=== PATIENT | female | born 1965 | race Caucasian/White ===

== ENCOUNTER → 2016-11-04 | Outpatient (CLI) | payer BC ==
--- NOTE | 2016-11-04 11:24 | MM ---
Reason for exam: history of breast cancer, mastectomy. Last mammogram was performed 1 year and 2 months ago. History: Patient has history of other cancer at age 47, has history of breast cancer at age 39, and had first child at age 29. Malignant stereotactic core biopsy of the right breast, July 09, 2004. Malignant ultrasound-guided core biopsy of the right breast, July 09, 2004. 2 reductions of the left breast, 2004. Mastectomy of the right breast, 2004. Benign ultrasound-guided core biopsy of the right breast, January 24, 2000. 3 core biopsies of the right breast. Took tamoxifen for 4 years beginning at age 39. Physical Findings: Nurse did not find any significant physical abnormalities on exam. MG Diagnostic Mammo LT w CAD CC and MLO view(s) were taken of the left breast. Prior study comparison: August 26, 2015, left breast MG 3d diag mammo w/cad LT. June 23, 2014, left breast MG diagnostic mammo LT w CAD. There are scattered fibroglandular densities. There is no discrete abnormality. No significant new findings when compared with previous films. These results were verbally communicated with the patient and result sheet given to the patient on 11/04/16. ASSESSMENT: Negative, BI-RAD 1 RECOMMENDATION: Follow-up diagnostic mammogram of the left breast in 1 year.
== END | disposition home or self-care (01) ==
LOC: RADMAMWWP 09:58
PROVIDERS: ATTEND Obstetrics & Gynecology
DX: Z09 Encounter for follow-up examination after completed treatment for conditions other than malignant neoplasm (principal); Z85.3 Personal history of malignant neoplasm of breast

== ENCOUNTER → 2017-11-09 | Outpatient (CLI) | payer BC ==
--- NOTE | 2017-11-09 12:12 | MM ---
Reason for exam: additional evaluation requested from prior study. Last mammogram was performed 1 year ago. History: Patient has history of other cancer at age 47, has history of breast cancer at age 39, and had first child at age 29. Malignant stereotactic core biopsy of the right breast, July 09, 2004. Malignant ultrasound-guided core biopsy of the right breast, July 09, 2004. 2 reductions of the left breast, 2004. Mastectomy of the right breast, 2004. Benign ultrasound-guided core biopsy of the right breast, January 24, 2000. 3 core biopsies of the right breast. Took tamoxifen for 4 years beginning at age 39. Physical Findings: Nurse did not find any significant physical abnormalities on exam. MG Diagnostic Mammo LT w CAD CC and MLO view(s) were taken of the left breast. Prior study comparison: November 04, 2016, left breast MG diagnostic mammo LT w CAD. August 26, 2015, left breast MG 3d diag mammo w/cad LT. The breast tissue is heterogeneously dense. This may lower the sensitivity of mammography. Finding: There are typically benign linear calcifications in the subareolar position of the left breast. There is no discrete abnormality. These results were verbally communicated with the patient and result sheet given to the patient on 11/09/17. ASSESSMENT: Benign, BI-RAD 2 RECOMMENDATION: Follow-up diagnostic mammogram of the left breast in 1 year.
== END | disposition home or self-care (01) ==
LOC: RADMAMWWP 08:00
PROVIDERS: ATTEND Obstetrics & Gynecology
DX: Z08 Encounter for follow-up examination after completed treatment for malignant neoplasm (principal); Z85.3 Personal history of malignant neoplasm of breast
CPT/HCPCS: 77065

== ENCOUNTER → 2018-12-05 | Outpatient (CLI) | payer BC ==
--- NOTE | 2018-12-05 08:22 | MM ---
Reason for exam: additional evaluation requested from prior study. Last mammogram was performed 1 year and 1 month ago. History: Patient has history of other cancer at age 47, has history of breast cancer at age 39, and had first child at age 29. Malignant stereotactic core biopsy of the right breast, July 09, 2004. Malignant ultrasound-guided core biopsy of the right breast, July 09, 2004. 2 reductions of the left breast, 2004. Mastectomy of the right breast, 2004. Benign ultrasound-guided core biopsy of the right breast, January 24, 2000. 3 core biopsies of the right breast. Took tamoxifen for 4 years beginning at age 39. Physical Findings: Nurse did not find any significant physical abnormalities on exam. MG 3D Diag Mammo W/Cad LT CC, MLO, and ML view(s) were taken of the left breast. Prior study comparison: November 09, 2017, left breast MG diagnostic mammo LT w CAD. November 04, 2016, left breast MG diagnostic mammo LT w CAD. The breast tissue is heterogeneously dense. This may lower the sensitivity of mammography. No suspicious abnormality. These results were verbally communicated with the patient and result sheet given to the patient on 12/05/18. ASSESSMENT: Negative, BI-RAD 1 RECOMMENDATION: Follow-up diagnostic mammogram of the left breast in 1 year.
== END | disposition home or self-care (01) ==
LOC: RADMAMWWP 07:12
PROVIDERS: ATTEND Obstetrics & Gynecology
DX: Z08 Encounter for follow-up examination after completed treatment for malignant neoplasm (principal); Z85.3 Personal history of malignant neoplasm of breast
CPT/HCPCS: 77061; 77065

== ENCOUNTER → 2020-04-10 | Outpatient (CLI) | payer BC ==
--- NOTE | 2020-04-13 10:50 | MM ---
Reason for exam: additional evaluation requested from prior study. Last mammogram was performed 1 year and 4 months ago. History: Patient has history of other cancer at age 47, has history of breast cancer at age 39, and had first child at age 29. Malignant stereotactic core biopsy of the right breast, July 09, 2004. Malignant ultrasound-guided core biopsy of the right breast, July 09, 2004. 2 reductions of the left breast, 2004. Mastectomy of the right breast, 2004. Benign ultrasound-guided core biopsy of the right breast, January 24, 2000. 3 core biopsies of the right breast. Took tamoxifen for 4 years beginning at age 39. Physical Findings: Nurse did not find any significant physical abnormalities on exam. MG 3D Diag Mammo W/Cad LT CC and MLO view(s) were taken of the left breast. Prior study comparison: December 05, 2018, left breast MG 3d diag mammo w/cad LT. November 09, 2017, left breast MG diagnostic mammo LT w CAD. The breast tissue is heterogeneously dense. This may lower the sensitivity of mammography. Finding #1: Architectural distortion in the left breast consistent with known surgical changes. Finding #2: There are typically benign round calcifications in the anterior position of the left breast. There is no discrete abnormality. These results were verbally communicated with the patient and result sheet given to the patient on 04/10/20. ASSESSMENT: Benign, BI-RAD 2 RECOMMENDATION: Follow-up diagnostic mammogram of the left breast in 1 year.
== END | disposition home or self-care (01) ==
LOC: RADMAMWWP 13:26
PROVIDERS: ATTEND Obstetrics & Gynecology
DX: R92.8 Other abnormal and inconclusive findings on diagnostic imaging of breast (principal); Z85.3 Personal history of malignant neoplasm of breast
CPT/HCPCS: 77061; 77065

== ENCOUNTER → 2021-04-12 | Outpatient (CLI) | payer BC ==
--- NOTE | 2021-04-13 13:42 | MM ---
Reason for exam: additional evaluation requested from prior study. Last mammogram was performed 1 year ago. History: Patient has history of other cancer at age 47, has history of breast cancer at age 39, and had first child at age 29. Malignant stereotactic core biopsy of the right breast, July 09, 2004. Malignant ultrasound-guided core biopsy of the right breast, July 09, 2004. 2 reductions of the left breast, 2004. Mastectomy of the right breast, 2004. Benign ultrasound-guided core biopsy of the right breast, January 24, 2000. 3 core biopsies of the right breast. Took tamoxifen for 1 year beginning at age 39. Physical Findings: Nurse did not find any significant physical abnormalities on exam. MG 3D Diag Mammo W/Cad LT CC and MLO view(s) were taken of the left breast. Prior study comparison: April 10, 2020, left breast MG 3d diag mammo w/cad LT. December 05, 2018, left breast MG 3d diag mammo w/cad LT. November 09, 2017, left breast MG diagnostic mammo LT w CAD. There are scattered fibroglandular densities. No significant new findings when compared with previous films. These results were verbally communicated with the patient and result sheet given to the patient on 04/12/21. ASSESSMENT: Benign, BI-RAD 2 RECOMMENDATION: Follow-up diagnostic mammogram of the left breast in 1 year.
== END | disposition home or self-care (01) ==
LOC: RADMAMWWP 14:56
PROVIDERS: ATTEND Internal Medicine Hematology & Oncology
DX: R92.8 Other abnormal and inconclusive findings on diagnostic imaging of breast (principal); Z85.3 Personal history of malignant neoplasm of breast
CPT/HCPCS: 77061; 77065

== ENCOUNTER → 2022-04-14 | Outpatient (CLI) | payer BC ==
--- NOTE | 2022-04-14 15:16 | MM ---
Reason for Exam: Follow-up at short interval from prior study. Last screening mammogram was performed 12 month(s) ago. Patient History: Menarche at age 13. First Full-Term at age 29. Late child-bearing (after 30). Other cancer, age 47. Breast cancer, age 39. Previous chemotherapy at age 39. Tamoxifen, starting at age 39 for 1 year. 2004, Reduction on the Left side. 2004, Mastectomy on the Right side. 2004, Reduction on the Left side. Core Biopsy on the Right side. Core Biopsy on the Right side. Core Biopsy on the Right side. 07/09/2004, Malignant Stereotactic Core Biopsy on the right side. 07/09/2004, Malignant Ultrasound-Guided Core Biopsy on the right side. 01/24/2000, Benign Ultrasound-Guided Core Biopsy on the right side. Prior Study Comparison: 12/05/2018 Left Diagnostic Mammogram, [facility]. 04/10/2020 Left Diagnostic Mammogram, [facility]. 04/12/2021 Left Diagnostic Mammogram, [facility]. Tissue Density: Left: There are scattered fibroglandular densities. Findings: Analyzed By CAD. No significant change from prior exams. Overall Assessment: Negative, BI-RAD 1 Management: Screening Mammogram of the left breast in 1 year. 1. Patient should continue monthly self breast exams. 2. A clinical breast exam by your physician is recommended on an annual basis. 3. This exam should not preclude additional follow-up of suspicious palpable abnormalities. Results were given to the patient verbally at the time of exam. Electronically signed and approved by: Brando Kincaid M.D. Radiologist
== END | disposition home or self-care (01) ==
LOC: RADMAMWWP 14:42
PROVIDERS: ATTEND Internal Medicine Hematology & Oncology
DX: Z08 Encounter for follow-up examination after completed treatment for malignant neoplasm (principal); Z85.3 Personal history of malignant neoplasm of breast
CPT/HCPCS: 77061; 77065

== ENCOUNTER → 2022-07-11 | Outpatient (CLI) | payer BC ==
[2022-07-11 23:21] LABS: Basophils # (A) 0.04 X 10*3/uL (0.00-0.10); Basophils % (A) 0.6 %; Eosinophils # (A) 0.11 X 10*3/uL (0.04-0.35); Eosinophils % (A) 1.8 %; HCT 42.2 % (37.2-46.3); Immature Grans, Automated 0.3 %; Lymphocytes # (A) 1.61 X 10*3/uL (0.90-5.00); Lymphocytes % (A) 25.7 %; MCH 29.3 pg (27.0-32.0); MCHC 33.2 g/dL (32.0-37.0); MCV 88.3 fL (80.0-97.0); Mean Platelet Volume 10.1 fL (9.5-12.2); NRBC Per 100 WBC 0 /100 WBCS (0.0-0.0); Neutrophils # (A) 3.98 X 10*3/uL (1.80-7.70); Neutrophils % (A) 63.6 %; Platelet Count 209 X 10*3/uL (140-440); RBC 4.78 X 10*6/uL (4.10-5.20); RDW 12.5 % (11.5-14.5); WBC 6.26 X 10*3/uL (4.50-10.00)
[2022-07-11 23:38] LABS: ALT 40 U/L (8-44); AST 25 U/L (13-35)
== END | disposition home or self-care (01) ==
LOC: LABWHC1 15:59
PROVIDERS: ATTEND Physician Assistant Medical
DX: B35.1 Tinea unguium (principal); L82.0 Inflamed seborrheic keratosis; L53.8 Other specified erythematous conditions
CPT/HCPCS: 36415; 84450; 84460; 85025

== ENCOUNTER → 2024-04-18 | Outpatient (CLI) | payer BC ==
--- NOTE | 2024-04-18 09:28 | MM ---
Reason for Exam: Hx of breast cancer, mastectomy. Last screening mammogram was performed 12 month(s) ago. Patient History: Menarche at age 13. First Full-Term at age 29. Late child-bearing (after 30). Postmenopausal. Other cancer, age 47. Breast cancer, right, age 39. Previous chemotherapy at age 39. Tamoxifen, starting at age 39 for 1 year. 2004, Reduction on the Left side. 2004, Mastectomy on the Right side. 2004, Reduction on the Left side. Core Biopsy on the Right side. Core Biopsy on the Right side. Core Biopsy on the Right side. 07/09/2004, Malignant Stereotactic Core Biopsy on the right side. 07/09/2004, Malignant Ultrasound-Guided Core Biopsy on the right side. 01/24/2000, Benign Ultrasound-Guided Core Biopsy on the right side. Prior Study Comparison: 04/12/2021 Left Diagnostic Mammogram, [facility]. 04/14/2022 Left MG 3D diag mammo w/cad LT, [facility]. 04/17/2023 Left MG 3D diag mammo w/cad LT, [facility]. Tissue Density: Left: There are scattered areas of fibroglandular density. Findings: Analyzed By CAD. No new suspicious masses, calcifications or distortions. Overall Assessment: Negative, BI-RAD 1 Management: Screening Mammogram of the left breast in 1 year. Results were given to the patient verbally at the time of exam. Patient should continue monthly self-breast exams. A clinical breast exam by your physician is recommended on an annual basis. This exam should not preclude additional follow-up of suspicious palpable abnormalities. Note on Brittni scores and lifetime risk: 1. A Brittni score greater than 3% is considered moderate risk. If this is the case, consider specialist referral to assess eligibility for a risk reducing agent. 2. If overall lifetime risk for the development of breast cancer is 20% or higher, the patient may qualify for future screening with alternating mammogram and breast MRI. [facility], , 04/18/2024 9:25 AM. Electronically signed and approved by: Boyd Miranda DO
== END | disposition home or self-care (01) ==
LOC: RADMAMWWP 08:48
PROVIDERS: ATTEND Internal Medicine Hematology & Oncology
CPT/HCPCS: 77061; 77065

== ENCOUNTER 2024-06-12 09:43 | Day surgery (SDC) | payer BC ==
[2024-06-12] MEDS: IV FLUID CONTINUATION 1,000 ML IV ONE (09:57)
[2024-06-12 10:00] VITALS: TEMP 97.7
[2024-06-12] MEDS: LACTATED RINGERS 1,000 ML IV SCH (10:10)
[2024-06-12] MEDS ORDERED: LIDOCAINE 1% INJ 10MG/ML (20 ML MDV) ONE (11:11)
[2024-06-12] MEDS ORDERED: PROPOFOL 10 MG/ML 20 ML VIAL IV ONE (11:11)
--- NOTE | 2024-06-12 11:30 | P.PCN ---
Date of Procedure: 06/12/24 Procedure(s) Performed: BRIEF HISTORY: Patient is a 59-year-old pleasant white female scheduled for an elective colonoscopy as a part of screening for colon cancer. PROCEDURE PERFORMED: Colonoscopy snare polypectomy. PREOPERATIVE DIAGNOSIS: Screening for colon cancer. IV sedation per Anesthesia. PROCEDURE: After informed consent was obtained, the patient, was brought into the endoscopy unit. IV sedation was administered by Anesthesia under continuous monitoring. Digital rectal examination was normal. Initially the Olympus CF-160 flexible video colonoscope was then inserted in the rectum, gradually advanced into the cecum without any difficulty. Careful examination was performed as the scope was gradually being withdrawn. Ileocecal valve and the appendiceal orifice were visualized and appeared normal. Prep was excellent. Mucosa of the cecum, ascending colon, normal. The hepatic lecture there was a 8 mm flat polyp removed by cold snare polypectomy. Rest of the transverse colon, descending colon, sigmoid colon, and rectum appeared normal. Retroflexion was performed in the rectum and no lesions were seen. The patient tolerated the procedure well. IMPRESSION: 8 mm hepatic flexure polyp status post cold snare polypectomy Rest of the colon appeared normal RECOMMENDATIONS: Findings of this examination were discussed with the patient as well as her family. She was advised to follow-up with the biopsy results. If the biopsy reveals adenoma she can have repeat colonoscopy in 5 years..
[2024-06-12 12:22] VITALS: BP 137/93; PULSE 76; RESP 18
== END 2024-06-12 13:09 | disposition home or self-care (01) ==
LOC: ORWHC2ENDO 09:43
PROVIDERS: ATTEND Internal Medicine Gastroenterology
DX: Z12.11 Encounter for screening for malignant neoplasm of colon (principal); D12.3 Benign neoplasm of transverse colon; E78.5 Hyperlipidemia, unspecified; E03.9 Hypothyroidism, unspecified; Z79.890 Hormone replacement therapy; Z79.899 Other long term (current) drug therapy
CPT/HCPCS: 45385; J2003; J2704; 88305

== ENCOUNTER 2024-07-08 11:47 | Emergency (ER) | payer BC ==
[2024-07-08 12:28] VITALS: TEMP 97.8
--- NOTE | 2024-07-08 12:55 | ED ---
ENT HPI - General Chief complaint: ENT Stated complaint: Nose Bleed Time Seen by Provider: 07/08/24 12:53 Source: patient, RN notes reviewed Mode of arrival: ambulatory Limitations: no limitations - History of Present Illness Initial comments: 59-year-old female presented to the ER for evaluation of epistaxis. Patient states since 430 this morning she has been having a persistent nosebleed out of her left nostril. She does report a history of nosebleeds in the past. She states in the past couple months she has been getting more frequent nosebleeds. She states bleeding started out of left nostril and is occasionally draining down the back of her throat. No bleeding from right. Patient denies any injuries or traumas. No blood thinner use. Patient has no other complaints at this time. - Related Data Home Medications Medication Instructions Recorded Confirmed Atorvastatin [Lipitor] 20 mg PO DAILY 06/10/24 06/12/24 Levothyroxine Sodium [Synthroid] 150 mcg PO DAILY 06/10/24 06/12/24 Terbinafine [LamISIL] 250 mg PO DAILY 06/10/24 06/12/24 Allergies Allergy/AdvReac Type Severity Reaction Status Date / Time No Known Allergies Allergy Verified 07/08/24 12:28 Review of Systems ROS Statement: Those systems with pertinent positive or pertinent negative responses have been documented in the HPI. ROS Other: All systems not noted in ROS Statement are negative. Past Medical History Past Medical History: Cancer, Hyperlipidemia, Thyroid Disorder Additional Past Medical History / Comment(s): Breast cancer History of Any Multi-Drug Resistant Organisms: None Reported Past Surgical History: Ablation Additional Past Surgical History / Comment(s): R Mastecomy 07/2004 Chemo, Atopic - D&C , Past Anesthesia/Blood Transfusion Reactions: No Reported Reaction Past Psychological History: No Psychological Hx Reported Smoking Status: Never smoker Past Alcohol Use History: Occasional Past Drug Use History: None Reported General Exam Limitations: no limitations General appearance: alert, in no apparent distress ENT exam: Present: mucous membranes moist, other (Blood clot noted at left nare. Minimal oozing noted. No nasal bone tenderness. Blood in posterior pharynx) Neck exam: Present: normal inspection. Absent: tenderness, meningismus, lymphadenopathy Respiratory exam: Present: normal lung sounds bilaterally. Absent: respiratory distress, wheezes, rales, rhonchi, stridor Cardiovascular Exam: Present: regular rate, normal rhythm, normal heart sounds. Absent: systolic murmur, diastolic murmur, rubs, gallop, clicks Neurological exam: Present: alert, oriented X3, CN II-XII intact Skin exam: Present: warm, dry, intact, normal color. Absent: rash Course Vital Signs 07/08/24 07/08/24 07/08/24 12:25 14:10 15:07 Temperature 97.8 F 97.8 F Pulse Rate 135 H 114 H 107 H Respiratory 22 18 18 Rate Blood Pressure 139/95 139/71 134/90 O2 Sat by Pulse 96 100 97 Oximetry - Reevaluation(s) Reevaluation #1: 07/08/24 12:50 First dose of Afrin administered and nose clamp placed. 07/08/24 13:13 Patient reevaluated. Nose clamp removed. No active bleeding. Blood clot in place. Medical Decision Making - Medical Decision Making Was pt. sent in by a medical professional or institution (, PA, AGRISCIENCE INSTRUCTOR, urgent care, hospital, or retirement...) When possible be specific @ -No Did you speak to anyone other than the patient for history (EMS, parent, family, police, friend...)? What history was obtained from this source @ -No Did you review nursing and triage notes (agree or disagree)? Why? @ -I reviewed and agree with nursing and triage notes Were old charts reviewed (outside hosp., previous admission, EMS record, old EKG, old radiological studies, urgent care reports/EKG's, retirement records)? Report findings @ -No old charts were reviewed Differential Diagnosis (chest pain, altered mental status, abdominal pain women, abdominal pain men, vaginal bleeding, weakness, fever, dyspnea, syncope, headache, dizziness, GI bleed, back pain, seizure, CVA, palpatations, mental health, musculoskeletal)? @ -Epistaxis, septal hematoma, nasal bone fracture, foreign body... This list is not meant to be all-inclusive EKG interpreted by me (3pts min.). @ -None done X-rays interpreted by me (1pt min.). @ -None done CT interpreted by me (1pt min.). @ -None done U/S interpreted by me (1pt. min.). @ -None done What testing was considered but not performed or refused? (CT, X-rays, U/S, labs)? Why? @ -None What meds were considered but not given or refused? Why? @ -None Did you discuss the management of the patient with other professionals (professionals i.e. , PA, AGRISCIENCE INSTRUCTOR, lab, RT, psych nurse, social media developer, office asst, teacher, environmental protection officer, residential case manager)? Give summary @ -No Was smoking cessation discussed for >3mins.? @ -No Was critical care preformed (if so, how long)? @ -No Were there social determinants of health that impacted care today? How? (Homelessness, low income, unemployed, alcoholism, drug addiction, transportation, low edu. Level, literacy, decrease access to med. care, detention, rehab)? @ -No Was there de-escalation of care discussed even if they declined (Discuss DNR or withdrawal of care, Hospice)? DNR status @ -No What co-morbidities impacted this encounter? (DM, HTN, Smoking, COPD, CAD, Cancer, CVA, ARF, Chemo, Hep., AIDS, mental health diagnosis, sleep apnea, morbid obesity)? @ -None Was patient admitted / discharged? Hospital course, mention meds given and route, prescriptions, significant lab abnormalities, going to OR and other pertinent info. @ -Discharged. 59-year-old female presented to the ER for evaluation of epistaxis. No blood thinners. History and physical exam completed. Patient is tachycardic at 135 likely due to anxiety, vitals otherwise stable. Minimal oozing from left nostril. No nasal bone tenderness or septal hematoma. Patient in no signs of acute distress. Afrin administered and nose clamp placed. Upon reevaluation, blood clot noted in left nostril with no active bleeding. Patient monitored in the ER for approximately 30 minutes after cessation of bleeding with no reoccurrence. Patient is stable for discharge at this time. I instructed patient to follow-up with PCP. I also recommend close follow-up with ENT if epistaxis becomes more frequent. Strict return parameters discussed. Patient discharged in stable condition with follow-up to PCP. Patient verbally expressed understanding and agreement with care plan. Case discussed with ED attending, Dr. Bonilla. Undiagnosed new problem with uncertain prognosis? @ -No Drug Therapy requiring intensive monitoring for toxicity (Heparin, Nitro, Insulin, Cardizem)? @ -No Were any procedures done? @ -No Diagnosis/symptom? @ -Epistaxis Acute, or Chronic, or Acute on Chronic? @ -Acute Uncomplicated (without systemic symptoms) or Complicated (systemic symptoms)? @ -Uncomplicated Side effects of treatment? @ -No Exacerbation, Progression, or Severe Exacerbation? @ -No Poses a threat to life or bodily function? How? (Chest pain, [place], [place], pneumonia, PE, COPD, DKA, ARF, appy, cholecystitis, CVA, Diverticulitis, Homicidal, Suicidal, threat to staff... and all critical care pts) @ -No Disposition Clinical Impression: Epistaxis Disposition: HOME SELF-CARE Condition: Stable Instructions (If sedation given, give patient instructions): Nosebleed (ED) Additional Instructions: Follow-up with PCP. Follow-up with ENT if nosebleeds become more frequent. Return to the ER for any new or worsening concerns. Is patient prescribed a controlled substance at d/c from ED?: No Referrals: Rey aGrcia DO [Primary Care Provider] - 1-2 days Brandon Pantoja MD [STAFF PHYSICIAN] - 1-2 days Time of Disposition: 14:50
[2024-07-08] MEDS: OXYMETAZOLINE 0.05% NASL SPRAY 1 SPRAY BOTTLE NASAL STA (13:46)
[2024-07-08 14:12] VITALS: RESP 18
[2024-07-08 15:07] VITALS: BP 134/90; PULSE 107
== END 2024-07-08 15:07 | disposition home or self-care (01) ==
LOC: EC 11:47
DX: R04.0 Epistaxis (principal)
CPT/HCPCS: 99283